=== PATIENT | female | born 1995 | race Caucasian/White ===

== ENCOUNTER 2024-09-08 07:38 | Observation (INO) | payer OTHER ==
[~2024-09-08] VITALS: Ht 160 cm; Wt 76.2 kg
[2024-09-08] VITALS (7 sets, daily range): BP systolic 108–115; BP diastolic 63–72; TEMP 97.3–98.1; O2SAT 94–96
[~2024-09-08 07:38] MED LIST: IRON27TA2 PO; LEXA1TAB PO; OMEG350C PO; THERTAB52 PO; TRAZ-186 PO
[2024-09-08] MEDS ORDERED: LR 1,000 ML IV SCH (08:30)
[2024-09-08] MEDS ORDERED: LIDOCAINE 2% 100MG/5ML SDV (FOR ANES.) As Ordered ONE (08:50)
[2024-09-08] MEDS ORDERED: propofoL 200 MG/20 ML VIAL As Ordered ONE (08:50)
[2024-09-08] MEDS ORDERED: ACETAMINOPHEN 1000MG/100ML IV BAG As Ordered ONE (08:51)
[2024-09-08] MEDS ORDERED: ONDANSETRON 4MG 2ML VIAL As Ordered ONE (08:51)
[2024-09-08] MEDS ORDERED: MIDAZOLAM INJ 2MG/2ML VIAL As Ordered ONE (08:51)
[2024-09-08] MEDS ORDERED: fentaNYL 250 MCG/5 ML INJECTION As Ordered ONE (08:51)
[2024-09-08] MEDS ORDERED: dexmedeTOMIDine (4MCG/ML)200MCG/50ML BTL (PRECEDEX) As Ordered ONE (08:51)
[2024-09-08] MEDS ORDERED: IRON1TAB2 PO (09:58)
[2024-09-08] MEDS: ceFAZolin SOD 2 GM IV ONCE IV ONE (10:25)
[2024-09-08] MEDS: HEPARIN SOD (PORCINE) 5000UNITS/ML 1ML VIAL/SYRINGE SQ ONE (10:30)
[2024-09-08] MEDS ORDERED: PHENYLephrine 500MCG 5ML (100MCG/ML) SYRINGE As Ordered ONE (10:43)
[2024-09-08] MEDS ORDERED: LACRILUBE (AKWA TEARS) OPHTH OINT 3.5GM As Ordered ONE (10:43)
[2024-09-08] MEDS ORDERED: GLYCOPYRROLATE INJ 0.2 MG/ML 2 ML VIAL As Ordered ONE (10:59)
[2024-09-08] MEDS ORDERED: ePHEDrine SULFATE 25 MG/5 ML(5MG/ML) SYRINGE As Ordered ONE (10:59)
[2024-09-08] MEDS ORDERED: ROCURONIUM BROMIDE 50MG/5ML VIAL As Ordered ONE (11:06)
[2024-09-08] MEDS ORDERED: HYDROmorphone HCL 2MG/ML 1ML VIAL As Ordered ONE (11:32)
[2024-09-08] MEDS ORDERED: SUGAMMADEX SODIUM 500 MG/5 ML VIAL (BRIDION) As Ordered ONE (11:34)
[2024-09-08] MEDS: BUPivacaine LIPOSOME/PF 266MG 20ML VIAL (13.3MG/ML)(EXPAREL) As Ordered ONE (12:00)
[2024-09-08] MEDS: GENTAMICIN SULF 80MG/2ML VIAL As Ordered ONE (12:30)
[2024-09-08] MEDS: LR 1,000 ML IV SCH ×2 (14:00→16:36)
[2024-09-08] MEDS ORDERED: fentaNYL 100 MCG/2 ML INJECTION IV PRN (14:00)
[2024-09-08] MEDS ORDERED: ONDANSETRON 4MG 2ML VIAL IV PRN (14:00)
[2024-09-08] MEDS: HYDROMORPHONE HCL 0.5 MG/ 0.5 ML SYRINGE IV PRN (14:17)
[2024-09-08] MEDS: oxyCODONE 5MG TAB PO PRN (14:19)
[2024-09-08] MEDS: METOCLOPRAMIDE INJ 10MG/2ML VIAL IV ONE (14:52)
[2024-09-08] MEDS: ceFAZolin SODIUM 2 GM in DEXTROSE 5% (D5W) ADV/MINI-BAG 50 ML IV SCH (18:13)
[2024-09-08] MEDS: PERCOCET 5MG/325MG TAB PO PRN (18:19)
[2024-09-08 18:29] LABS: HEMOGLOBIN 12.9 g/dl (12.0-15.5); MEAN CORPUSCULAR HEMOGLOBIN 32.7 pg (27.0-33.0); MEAN CORPUSCULAR HGB CONC 33.9 g/dl (32.0-36.5); MEAN CORPUSCULAR VOLUME 96.2 fl (80.0-96.0); PLATELET COUNT, AUTOMATED 256 10^3/uL (150-450); RED BLOOD COUNT 3.95 10^6/uL (4.00-5.40); WHITE BLOOD COUNT 12.7 10^3/uL (4.0-10.0)
[2024-09-08] MEDS: ASCORBIC ACID 500 MG TAB PO SCH (21:06)
[2024-09-09 01:30] VITALS: BP 101/61; TEMP 97.5; O2SAT 95
[2024-09-09] MEDS: traMADol 50 MG TAB PO PRN (02:09)
[2024-09-09] MEDS: ONDANSETRON 4MG 2ML VIAL IV PRN (02:09)
[2024-09-09 05:30] VITALS: BP 103/59; TEMP 97.7; O2SAT 95
[2024-09-09 06:04] LABS: HEMATOCRIT 33.8 % (36.0-47.0); HEMOGLOBIN 11.2 g/dl (12.0-15.5); MEAN CORPUSCULAR HEMOGLOBIN 32.5 pg (27.0-33.0); MEAN CORPUSCULAR HGB CONC 33.1 g/dl (32.0-36.5); PLATELET COUNT, AUTOMATED 239 10^3/uL (150-450); RED BLOOD COUNT 3.45 10^6/uL (4.00-5.40); WHITE BLOOD COUNT 10.9 10^3/uL (4.0-10.0)
[2024-09-09] MEDS: ZINC SULFATE 220 MG CAP PO SCH (09:13)
[2024-09-09] MEDS: ESCITALOPRAM OXALATE 10 MG TAB (LEXAPRO) PO SCH (09:13)
[2024-09-09] MEDS: ACETAMINOPHEN 325 MG TAB PO PRN (09:14)
[2024-09-09 09:23] VITALS: BP 113/64; TEMP 97.9; O2SAT 98
[2024-09-09] MEDS ORDERED: PERCOCET PO (11:11)
[2024-09-09 12:00] VITALS: BP 113/64; TEMP 97.9; O2SAT 95
== END 2024-09-09 14:05 | disposition home or self-care (01) ==
LOC: M SDC 07:38 → M RR INP 07:39 → M MS5PR 16:25
PROVIDERS: ADMIT Plastic Surgery Surgery of the Hand; ATTEND Plastic Surgery Surgery of the Hand
DX: M54.07 Panniculitis affecting regions of neck and back, lumbosacral region (principal); L98.7 Excessive and redundant skin and subcutaneous tissue; L90.5 Scar conditions and fibrosis of skin; F41.9 Anxiety disorder, unspecified; Z79.899 Other long term (current) drug therapy
CPT/HCPCS: 15830; 15847; 36415; 81025; 85027; 88300; 96361; 96365; 96366; 96375; J0131; J0665; J0666; J0690; J1100; J1171; J1580; J1596; J2250; J2371; J2405; J2765; J3010